=== PATIENT | male | born 1970 | race Caucasian/White ===

== ENCOUNTER 2017-02-01 19:23 | Emergency (ER) | payer BC, OTHER ==
[~2017-02-01] VITALS: Ht 182.9 cm; Wt 88.5 kg
[2017-02-01 19:29] VITALS: Ht 182.9 cm; Wt 88.5 kg
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
[2017-02-01] MEDS ORDERED: ACET500C5 PO (21:56)
[2017-02-01 22:11] VITALS: BP 133/86; PULSE 77; RESP 18; TEMP 97.9
== END 2017-02-01 22:19 | disposition home or self-care (01) ==
LOC: FTE 19:23
DX: S19.9XXA Unspecified injury of neck, initial encounter (principal); R40.2252 Coma scale, best verbal response, oriented, at arrival to emergency department; I10 Essential (primary) hypertension; R40.2142 Coma scale, eyes open, spontaneous, at arrival to emergency department; R40.2362 Coma scale, best motor response, obeys commands, at arrival to emergency department; Y08.89XA Assault by other specified means, initial encounter
CPT/HCPCS: 70360; Z7502